=== PATIENT | female | born 1955 | race Two or more races ===

== ENCOUNTER 2022-11-16 18:21 | Emergency (ER) | payer OTHER ==
[~2022-11-16] VITALS: Ht 304.8 cm; Wt 64.5 kg
[2022-11-16 18:40] VITALS: BP 139/71
[2022-11-16] MEDS ORDERED: ACE3T PO (21:10)
[2022-11-16] MEDS ORDERED: HYDROcodone-ACET 5/325MG TAB PO ONE (21:15)
[2022-11-16] MEDS ORDERED: ONDANSETRON ODT 4 MG TAB PO ONE (21:15)
== END 2022-11-16 21:43 | disposition home or self-care (01) ==
LOC: ER 18:21
DX: S82.431A Displaced oblique fracture of shaft of right fibula, initial encounter for closed fracture (principal); W01.0XXA Fall on same level from slipping, tripping and stumbling without subsequent striking against object, initial encounter; Y93.89 Activity, other specified; Y92.89 Other specified places as the place of occurrence of the external cause; Y99.8 Other external cause status
CPT/HCPCS: 29515; 73610; 99283; Q0162